=== PATIENT | female | born 1940 | race Caucasian/White ===

== ENCOUNTER → 2017-02-27 | Outpatient (CLI) | payer OTHER | LOC: FIMAGING 12:54 | PROVIDERS: ATTEND Family Medicine | DX: Z13.820 Encounter for screening for osteoporosis (principal); M85.80 Other specified disorders of bone density and structure, unspecified site; K50.911 Crohn's disease, unspecified, with rectal bleeding; D50.0 Iron deficiency anemia secondary to blood loss (chronic) ==